=== PATIENT | female | born 1965 | race Caucasian/White ===

== ENCOUNTER 2018-06-15 04:22 | Emergency (ER) | payer OTHER ==
[~2018-06-15] VITALS: Ht 154.9 cm; Wt 78.9 kg
[2018-06-15 04:27] VITALS: Ht 154.9 cm; Wt 78.9 kg
[2018-06-15 05:18] VITALS: BP 142/85
== END 2018-06-15 05:18 | disposition home or self-care (01) ==
LOC: ED 04:22
DX: K04.7 Periapical abscess without sinus (principal); I10 Essential (primary) hypertension; E11.9 Type 2 diabetes mellitus without complications
CPT/HCPCS: J0696; J3490